=== PATIENT | male | born 1950 | race African-American/Black ===

== ENCOUNTER 2017-06-04 03:36 | Inpatient (IN) | payer MEDICARE, OTHER ==
[2017-06-04] MEDS ORDERED: ALBUTEROL SULFATE 2.5 MG/3 ML NEBU. (03:41)
[2017-06-04] MEDS ORDERED: IPRATRPIUM/ALBUTEROL 0.5/2.5MG 3 ML NEBU. (03:41)
[2017-06-04] MEDS ORDERED: methylPREDNISolone SOD SUCC PF 125 MG/2 ML VIAL. (03:45)
[2017-06-04] MEDS: methylPREDNISolone SOD SUCC PF 125 MG/2 ML VIAL. IV (03:49)
[2017-06-04] MEDS: IPRATRPIUM/ALBUTEROL 0.5/2.5MG 3 ML NEBU. NEB ×5 (03:59→22:55)
[2017-06-04] MEDS ORDERED: methylPREDNISolone SOD SUCC PF 125 MG/2 ML VIAL. IV (04:00)
[2017-06-04] MEDS: ALBUTEROL SULFATE 2.5 MG/3 ML NEBU. CONT NEB (04:06)
[2017-06-04 04:08] LABS: BASE EXCESS ABG -4 mmol/L (-3-3); BASO % 0 % (0-3); EOS % 0 % (0-3); HCO3 ABG 20 mmol/L (21-28); HEMATOCRIT 44.9 % (39.0-53.0); HEMOGLOBIN 14.8 g/dL (13.0-17.5); LYMPH # 0.4 x10^3/uL (1.0-4.8); LYMPH % 5 % (24-48); MEAN CORPUSCULAR HEMOGLOBIN 26 pg (25-35); MEAN CORPUSCULAR HGB CONC 33 g/dL (31-37); MEAN CORPUSCULAR VOLUME 78 fL (79-100); MONO # 0.8 x10^3/uL (0.0-1.1); MONO % 10 % (0-9); NEUT # 7.2 x10^3uL (1.8-7.7); NEUT % 85 % (31-73); PCO2 ABG 35 mmHg (35-46); PH ABG 7.37 (7.35-7.45); PLATELET COUNT 187 x10^3/uL (140-400); PO2 ABG 74 mmHg (65-108); RED BLOOD COUNT 5.75 x10^6/uL (4.30-5.70); RED CELL DISTRIBUTION WIDTH 14.6 % (11.5-14.5); SAT O2 ABG 94 % (92-99); WHITE BLOOD COUNT 8.4 x10^3/uL (4.0-11.0)
[2017-06-04 04:14] LABS: ADD MAN DIFF? YES
[2017-06-04] MEDS: IV NORMAL SALINE 1000ML BAG 1,000 ML IV ×5 (04:15→08:04)
[2017-06-04 04:19] LABS: ANION GAP 13 (6-14); BLOOD UREA NITROGEN 13 mg/dL (8-26); CALCIUM 8.9 mg/dL (8.5-10.1); CARBON DIOXIDE 22 mmol/L (21-32); CHLORIDE 97 mmol/L (98-107); CREATININE 1.2 mg/dL (0.7-1.3); GFR 72.6; GLUCOSE 141 mg/dL (70-99); POTASSIUM 4.6 mmol/L (3.5-5.1); SODIUM 132 mmol/L (136-145)
[2017-06-04 04:33] LABS: TROPONINI 0.298 ng/mL (0.000-0.055)
[2017-06-04] MEDS: FUROSEMIDE 20 MG/2 ML VIAL. IVP ×2 (04:59→12:27)
[2017-06-04 05:00] LABS: NT-PRO BNP 350 pg/mL (0-124)
[2017-06-04] MEDS ORDERED: HEPARIN for IV BOLUS 10,000 UNIT/10 ML VIAL. IV (05:15)
[2017-06-04] MEDS ORDERED: ONDANSETRON PF 4 MG/2 ML VIAL. IV ×2 (05:45→09:15)
[2017-06-04] MEDS: ANTI-COAG MONITOR BY PHARMACY. MC ×2 (05:58→08:01)
[2017-06-04] MEDS: HEPARIN for IV BOLUS 10,000 UNIT/10 ML VIAL. IV (06:13)
[2017-06-04] MEDS: HEPARIN 25,000UTS/500ML PREMIX 500 ML IV (06:14)
[2017-06-04 08:53] LABS: TROPONINI 0.339 ng/mL (0.000-0.055)
[2017-06-04] MEDS ORDERED: hydrALAZINE 20 MG/ML VIAL. IVP (09:15)
[2017-06-04] MEDS ORDERED: ALBUTEROL SULFATE 2.5 MG/3 ML NEBU. NEB ×2 (09:15→12:15)
[2017-06-04] MEDS ORDERED: MORPHINE SULFATE 2 MG/ML DISP.SYRIN. IV (09:15)
[2017-06-04] MEDS ORDERED: DOCUSATE SODIUM 100 MG CAPSULE. PO (09:15)
[2017-06-04 10:05] LABS: % BANDS 1 % (0-9); % EOS 1 % (0-5); % LYMPHS 4 % (24-48); % MONOS 3 % (0-10); % SEGS 91 % (35-66); PLT ESTIMATE ADEQUATE (ADEQUATE)
[2017-06-04] MEDS: LISINOPRIL 20 MG TABLET PO (11:38)
[2017-06-04] MEDS: DOXYCYCLINE HYCLATE 100 MG TABLET PO ×2 (11:38→21:28)
[2017-06-04] MEDS: LACTOBACILLUS RHAMNOSUS GG 1 CAPSULE. PO ×2 (11:38→21:28)
[2017-06-04] MEDS: ACETAMINOPHEN 325 MG TABLET. PO (11:39)
[2017-06-04 12:21] LABS: UNFRACTIONATED HEPARIN TESTING 0.13 IU/mL (0.30-0.70)
[2017-06-04] MEDS: ASPIRIN ENTERIC COATED 81 MG TABLET.DR. PO (12:26)
[2017-06-04] MEDS: MINERAL OIL/PETROLATUM TOPICAL CREAM 113GM JAR. TP (12:27)
[2017-06-04] MEDS: amLODIPine BESYLATE 10 MG TABLET PO (12:27)
[2017-06-04 12:38] LABS: TROPONINI 0.448 ng/mL (0.000-0.055)
[2017-06-04 12:41] LABS: CHOLESTEROL 145 mg/dL (0-200); HDLC 54 mg/dL (40-60); LDLC 85 mg/dL (0-100); NON-HDL CHOLESTEROL 91 mg/dL (0-129); TRIGLYCERIDES 28 mg/dL (0-150); VLDLC 6 mg/dL (0-40)
[2017-06-04 12:43] LABS: CREATINE KINASE 1483 U/L (39-308)
[2017-06-04 12:43] LABS: CHOLESTEROL/HDL RATIO 2.7
[2017-06-04 12:44] LABS: THYROID STIM HORMONE (TSH) 0.351 uIU/mL (0.358-3.74)
[2017-06-04 13:56] LABS: INFLUENZA A PATIENT NEGATIVE (NEGATIVE); INFLUENZA B PATIENT NEGATIVE (NEGATIVE); OBC FLU VALID
[2017-06-04] MEDS ORDERED: methylPREDNISolone SOD SUCC PF 40 MG/ML VIAL. IV (14:00)
[2017-06-04] MEDS: methylPREDNISolone SOD SUCC PF 40 MG/ML VIAL. IV ×2 (15:16→21:30)
[2017-06-04] MEDS ORDERED: INFLUENZA VAX SCREEN BY RX. MC (19:15)
[2017-06-04 20:12] LABS: MRSA BY PCR Negative (Negative)
[2017-06-04] MEDS: FAMOTIDINE 20 MG TABLET. PO (21:28)
[2017-06-04] MEDS: POLYVINYL ALCOHOL 1.4% OPHTH SOLUTION 15ML BOTTLE. OU (21:33)
[2017-06-05] MEDS: IPRATRPIUM/ALBUTEROL 0.5/2.5MG 3 ML NEBU. NEB ×6 (02:19→23:30)
[2017-06-05 04:36] LABS: ADD MAN DIFF? NO
[2017-06-05 04:52] LABS: BASO % 0 % (0-3); EOS % 0 % (0-3); HEMATOCRIT 42.7 % (39.0-53.0); LYMPH # 0.7 x10^3/uL (1.0-4.8); LYMPH % 5 % (24-48); MEAN CORPUSCULAR HEMOGLOBIN 26 pg (25-35); MEAN CORPUSCULAR HGB CONC 33 g/dL (31-37); MEAN CORPUSCULAR VOLUME 78 fL (79-100); MONO # 0.4 x10^3/uL (0.0-1.1); MONO % 3 % (0-9); NEUT # 11.7 x10^3uL (1.8-7.7); NEUT % 92 % (31-73); PLATELET COUNT 180 x10^3/uL (140-400); RED BLOOD COUNT 5.45 x10^6/uL (4.30-5.70); WHITE BLOOD COUNT 12.8 x10^3/uL (4.0-11.0)
[2017-06-05 05:29] LABS: ANION GAP 10 (6-14); CALCIUM 8.2 mg/dL (8.5-10.1); CARBON DIOXIDE 25 mmol/L (21-32); CHLORIDE 101 mmol/L (98-107); CREATININE 1.3 mg/dL (0.7-1.3); GFR 66.2; GLUCOSE 156 mg/dL (70-99); POTASSIUM 4.8 mmol/L (3.5-5.1); SODIUM 136 mmol/L (136-145)
[2017-06-05 05:30] LABS: BLOOD UREA NITROGEN 23 mg/dL (8-26)
[2017-06-05] MEDS: methylPREDNISolone SOD SUCC PF 40 MG/ML VIAL. IV ×3 (05:37→23:29)
[2017-06-05 08:26] LABS: CREATINE KINASE 3739 U/L (39-308)
[2017-06-05] MEDS: LISINOPRIL 20 MG TABLET PO (09:00)
[2017-06-05 09:26] LABS: ALBUMIN 3.5 g/dL (3.4-5.0); ALK PHOS 64 U/L (46-116); ALT (SGPT) 36 U/L (16-63); AST (SGOT) 60 U/L (15-37); DIRECT BILIRUBIN 0.1 mg/dL (0.0-0.2); TOTAL BILIRUBIN 0.3 mg/dL (0.2-1.0); TOTAL PROTEIN 7.6 g/dL (6.4-8.2)
[2017-06-05] MEDS: IV NORMAL SALINE 1000ML BAG 1,000 ML IV (09:27)
[2017-06-05] MEDS: ASPIRIN ENTERIC COATED 81 MG TABLET.DR. PO (10:37)
[2017-06-05] MEDS: DOXYCYCLINE HYCLATE 100 MG TABLET PO ×2 (10:37→21:14)
[2017-06-05] MEDS: LACTOBACILLUS RHAMNOSUS GG 1 CAPSULE. PO ×2 (10:38→21:15)
[2017-06-05] MEDS: amLODIPine BESYLATE 10 MG TABLET PO (10:39)
[2017-06-05] MEDS: ANTI-COAG MONITOR BY PHARMACY. MC (15:00)
[2017-06-05 15:23] LABS: TROPONINI 0.603 ng/mL (0.000-0.055)
[2017-06-05 20:57] LABS: POC GLUCOSE 145 mg/dL (70-99)
[2017-06-05] MEDS: FAMOTIDINE 20 MG TABLET. PO (21:15)
[2017-06-05] MEDS: FLU VACC QS2017-18 (36MOS+)/PF 0.5 ML SYRINGE. VAX IM (21:18)
[2017-06-06] MEDS: IPRATRPIUM/ALBUTEROL 0.5/2.5MG 3 ML NEBU. NEB ×6 (04:08→23:27)
[2017-06-06 05:14] LABS: ADD MAN DIFF? NO
[2017-06-06 05:29] LABS: BASO % 0 % (0-3); EOS % 0 % (0-3); HEMATOCRIT 44.5 % (39.0-53.0); HEMOGLOBIN 14.3 g/dL (13.0-17.5); LYMPH # 0.8 x10^3/uL (1.0-4.8); LYMPH % 4 % (24-48); MEAN CORPUSCULAR HEMOGLOBIN 25 pg (25-35); MEAN CORPUSCULAR HGB CONC 32 g/dL (31-37); MEAN CORPUSCULAR VOLUME 78 fL (79-100); MONO # 0.6 x10^3/uL (0.0-1.1); MONO % 3 % (0-9); NEUT # 19.1 x10^3uL (1.8-7.7); NEUT % 93 % (31-73); PLATELET COUNT 189 x10^3/uL (140-400); RED CELL DISTRIBUTION WIDTH 15.3 % (11.5-14.5); WHITE BLOOD COUNT 20.5 x10^3/uL (4.0-11.0)
[2017-06-06 05:47] LABS: ALBUMIN 3.4 g/dL (3.4-5.0); ALBUMIN/GLOBULIN RATIO 0.8 (1.0-1.7); ALK PHOS 55 U/L (46-116); ALT (SGPT) 51 U/L (16-63); ANION GAP 8 (6-14); AST (SGOT) 98 U/L (15-37); BLOOD UREA NITROGEN 25 mg/dL (8-26); BUN/CREATININE RATIO 19 (6-20); CALCIUM 8.1 mg/dL (8.5-10.1); CARBON DIOXIDE 28 mmol/L (21-32); CHLORIDE 104 mmol/L (98-107); CREATININE 1.3 mg/dL (0.7-1.3); GFR 66.2; GLUCOSE 130 mg/dL (70-99); POTASSIUM 4.9 mmol/L (3.5-5.1); SODIUM 140 mmol/L (136-145); TOTAL BILIRUBIN 0.3 mg/dL (0.2-1.0); TOTAL PROTEIN 7.6 g/dL (6.4-8.2)
[2017-06-06 05:48] LABS: CREATINE KINASE 4485 U/L (39-308)
[2017-06-06] MEDS: methylPREDNISolone SOD SUCC PF 40 MG/ML VIAL. IV ×3 (07:50→21:37)
[2017-06-06 08:03] LABS: POC GLUCOSE 138 mg/dL (70-99)
[2017-06-06] MEDS: ANTI-COAG MONITOR BY PHARMACY. MC (09:42)
[2017-06-06] MEDS: REGADENOSON 0.4 MG/5 ML DISP.SYRIN. IV (10:44)
[2017-06-06] MEDS ORDERED: IV NORMAL SALINE 500ML BAG 500 ML IV (11:15)
[2017-06-06 11:52] LABS: POC GLUCOSE 142 mg/dL (70-99)
[2017-06-06] MEDS: LISINOPRIL 20 MG TABLET PO (12:33)
[2017-06-06] MEDS: ASPIRIN ENTERIC COATED 81 MG TABLET.DR. PO (12:33)
[2017-06-06] MEDS: amLODIPine BESYLATE 10 MG TABLET PO (12:35)
[2017-06-06] MEDS: DOXYCYCLINE HYCLATE 100 MG TABLET PO ×2 (12:36→21:35)
[2017-06-06] MEDS: LACTOBACILLUS RHAMNOSUS GG 1 CAPSULE. PO ×2 (12:36→21:35)
[2017-06-06] MEDS: IV NORMAL SALINE 1000ML BAG 1,000 ML IV (12:40)
[2017-06-06] MEDS: ASPIRIN CHEWABLE 81 MG TABLET. PO (15:22)
[2017-06-06 17:41] LABS: POC GLUCOSE 215 mg/dL (70-99)
[2017-06-06 18:54] LABS: VITAMIN-B12 754 pg/mL (247-911)
[2017-06-06 21:15] LABS: POC GLUCOSE 170 mg/dL (70-99)
[2017-06-06] MEDS: FAMOTIDINE 20 MG TABLET. PO (21:35)
[2017-06-07] MEDS: IPRATRPIUM/ALBUTEROL 0.5/2.5MG 3 ML NEBU. NEB ×5 (03:03→19:23)
[2017-06-07] MEDS: IV NORMAL SALINE 1000ML BAG 1,000 ML IV ×2 (03:27→18:13)
[2017-06-07 05:54] LABS: PHOSPHORUS 3.3 mg/dL (2.6-4.7)
[2017-06-07 05:56] LABS: CREATINE KINASE 1687 U/L (39-308)
[2017-06-07] MEDS: methylPREDNISolone SOD SUCC PF 40 MG/ML VIAL. IV (06:10)
[2017-06-07 06:11] LABS: BILIRUBIN,URINE NEGATIVE (NEG); CLARITY,URINE CLEAR; COLOR,URINE YELLOW; GLUCOSE,URINE NEGATIVE (NEG); NITRITE,URINE NEGATIVE (NEG); PROTEIN,URINE NEGATIVE (NEG-TRACE)
[2017-06-07 06:41] LABS: BACTERIA,URINE FEW /HPF (0-FEW); RBC,URINE OCC /HPF (0-2); SQUAMOUS EPITHELIAL CELL,UR OCC /LPF
[2017-06-07 08:13] LABS: POC GLUCOSE 146 mg/dL (70-99)
[2017-06-07] MEDS: ASPIRIN ENTERIC COATED 81 MG TABLET.DR. PO (09:29)
[2017-06-07] MEDS: LACTOBACILLUS RHAMNOSUS GG 1 CAPSULE. PO ×2 (09:29→20:52)
[2017-06-07] MEDS: DOXYCYCLINE HYCLATE 100 MG TABLET PO ×2 (09:29→20:52)
[2017-06-07] MEDS: amLODIPine BESYLATE 10 MG TABLET PO (09:30)
[2017-06-07] MEDS: LISINOPRIL 20 MG TABLET PO (09:30)
[2017-06-07] MEDS: ENOXAPARIN 40 MG/0.4 ML SYRINGE. SQ (09:31)
[2017-06-07 11:48] LABS: POC GLUCOSE 187 mg/dL (70-99)
[2017-06-07 14:36] LABS: FREE T4 0.93 ng/dL (0.76-1.46)
[2017-06-07 17:10] LABS: POC GLUCOSE 174 mg/dL (70-99)
[2017-06-07] MEDS: predniSONE 20 MG TABLET PO (18:13)
[2017-06-07] MEDS: THIAMINE 100 MG TABLET. PO (18:13)
[2017-06-07] MEDS: traMADol 50 MG TABLET PO (20:53)
[2017-06-07] MEDS: FAMOTIDINE 20 MG TABLET. PO (20:53)
[2017-06-07 21:08] LABS: POC GLUCOSE 136 mg/dL (70-99)
[2017-06-08] MEDS: IPRATRPIUM/ALBUTEROL 0.5/2.5MG 3 ML NEBU. NEB ×5 (00:41→15:56)
[2017-06-08 05:38] LABS: PHOSPHORUS 2.9 mg/dL (2.6-4.7)
[2017-06-08 05:38] LABS: CREATINE KINASE 848 U/L (39-308)
[2017-06-08 07:53] LABS: POC GLUCOSE 97 mg/dL (70-99)
[2017-06-08] MEDS: IV NORMAL SALINE 1000ML BAG 1,000 ML IV ×2 (08:10→16:35)
[2017-06-08] MEDS: predniSONE 20 MG TABLET PO (09:11)
[2017-06-08] MEDS: THIAMINE 100 MG TABLET. PO (09:11)
[2017-06-08] MEDS: ASPIRIN ENTERIC COATED 81 MG TABLET.DR. PO (09:11)
[2017-06-08] MEDS: LACTOBACILLUS RHAMNOSUS GG 1 CAPSULE. PO (09:11)
[2017-06-08] MEDS: amLODIPine BESYLATE 10 MG TABLET PO (09:11)
[2017-06-08] MEDS: LISINOPRIL 20 MG TABLET PO (09:12)
[2017-06-08] MEDS: ENOXAPARIN 40 MG/0.4 ML SYRINGE. SQ (09:12)
[2017-06-08] MEDS: DOXYCYCLINE HYCLATE 100 MG TABLET PO (09:12)
[2017-06-08 11:03] LABS: POC GLUCOSE 117 mg/dL (70-99)
[2017-06-08] MEDS ORDERED: MORPHINE SULFATE 4 MG/ML DISP.SYRIN. IV (11:18)
[2017-06-08 17:14] LABS: POC GLUCOSE 200 mg/dL (70-99)
[2017-06-09] MEDS ORDERED: predniSONE 10 MG TABLET PO (09:00)
[2017-06-11] MEDS ORDERED: predniSONE 20 MG TABLET PO (09:00)
[2017-06-13] MEDS ORDERED: predniSONE 10 MG TABLET PO (09:00)
[2017-06-15] MEDS ORDERED: predniSONE 5 MG TABLET PO (09:00)
== END 2017-06-08 18:48 | disposition home or self-care (01) | DRG 871 ==
LOC: ER 03:36 → 1 WEST ICU 05:48 → 2 NORTH 19:11
PROC: 5A09357 Assistance with Respiratory Ventilation, Less than 24 Consecutive Hours, Continuous Positive Airway Pressure (ICD-10-PCS; principal; 2017-06-08)
PROC: 5A09357 Assistance with Respiratory Ventilation, Less than 24 Consecutive Hours, Continuous Positive Airway Pressure (ICD-10-PCS; 2017-06-08)
DX: A41.89 Other specified sepsis (principal); I50.31 Acute diastolic (congestive) heart failure; J96.01 Acute respiratory failure with hypoxia; I21.4 Non-ST elevation (NSTEMI) myocardial infarction; J12.9 Viral pneumonia, unspecified; E87.1 Hypo-osmolality and hyponatremia; J44.0 Chronic obstructive pulmonary disease with (acute) lower respiratory infection; J44.1 Chronic obstructive pulmonary disease with (acute) exacerbation; M62.82 Rhabdomyolysis; E11.36 Type 2 diabetes mellitus with diabetic cataract; E11.65 Type 2 diabetes mellitus with hyperglycemia; E66.9 Obesity, unspecified; Z68.33 Body mass index [BMI] 33.0-33.9, adult; F17.210 Nicotine dependence, cigarettes, uncomplicated; F20.9 Schizophrenia, unspecified; H40.9 Unspecified glaucoma; I11.0 Hypertensive heart disease with heart failure; I16.0 Hypertensive urgency; Z82.49 Family history of ischemic heart disease and other diseases of the circulatory system; F32.9 Major depressive disorder, single episode, unspecified; M19.90 Unspecified osteoarthritis, unspecified site; Z98.49 Cataract extraction status, unspecified eye; R47.1 Dysarthria and anarthria
CPT/HCPCS: 36415; 36600; 70450; 70551; 71045; 78452; 80048; 80053; 80061; 80076; 81001; 82550; 82607; 82805; 82962; 83880; 84100; 84439; 84443; 84484; 85007; 85025; 85520; 87641; 87804; 87804-59; 90686; 93005; 93017; 93306; 93880; 94618; 94640; 94644; 94660; 94760; 96374; 96375; 96376; 97110-GP; 97116-GP; 97162-GP; 97165-GO; 99291; 99291-25; 99406; A9500; J1644; J1650; J2785; J2920; J2930; J7030; J7512; J7613; J7620

== ENCOUNTER 2021-03-13 11:53 | Observation (INO) | payer MEDICARE, MEDICAID ==
[~2021-03-13] VITALS: Ht 177.8 cm; Wt 82.0 kg
[~2021-03-13 11:53] MED LIST: ACET500T33 PO; AMLO-187 PO; DOXY100C3 PO; HALO100A2 IM; LISI-130 PO; PRED20TA PO; THIA100T43 PO
[2021-03-13 12:54] LABS: BASO % 0 % (0-3); EOS % 0 % (0-3); HEMATOCRIT 35.4 % (39.0-53.0); HEMOGLOBIN 11.4 g/dL (13.0-17.5); LYMPH # 1.2 x10^3/uL (1.0-4.8); LYMPH % 12 % (24-48); MEAN CORPUSCULAR HEMOGLOBIN 24 pg (25-35); MEAN CORPUSCULAR HGB CONC 32 g/dL (31-37); MEAN CORPUSCULAR VOLUME 76 fL (79-100); MONO # 0.5 x10^3/uL (0.0-1.1); MONO % 5 % (0-9); NEUT # 8.1 x10^3/uL (1.8-7.7); NEUT % 82 % (31-73); PLATELET COUNT 254 x10^3/uL (140-400); RED BLOOD COUNT 4.67 x10^6/uL (4.30-5.70); RED CELL DISTRIBUTION WIDTH 15.5 % (11.5-14.5); WHITE BLOOD COUNT 9.9 x10^3/uL (4.0-11.0)
[2021-03-13 13:02] LABS: CALCIUM 8.4 mg/dL (8.5-10.1); CREATININE 1.1 mg/dL (0.7-1.3); GFR 79.4; POTASSIUM 4.1 mmol/L (3.5-5.1)
[2021-03-13 13:08] LABS: ALBUMIN 3.1 g/dL (3.4-5.0); ALBUMIN/GLOBULIN RATIO 0.9 (1.0-1.7); MAGNESIUM 1.9 mg/dL (1.8-2.4); TOTAL PROTEIN 6.6 g/dL (6.4-8.2)
[2021-03-13 13:47] LABS: PROTHROMBIN TIME PATIENT 15.1 SEC (11.7-14.0)
--- NOTE | 2021-03-13 14:05 | RAD ---
EXAM: 1. CT HEAD WITHOUT CONTRAST. 2. CT FACIAL BONES WITHOUT CONTRAST. 3. CT CERVICAL SPINE WITHOUT CONTRAST. HISTORY: Altered mental status, fall. TECHNIQUE: Computed tomography of the head, facial bones and cervical spine was performed without int ravenous contrast. One or more of the following individualized dose reduction techniques were utilize d for this examination: 1. Automated exposure control. 2. Adjustment of the mA and/or kV according to patient size. 3. Use of iterative reconstruction technique. COMPARISON: 06/06/2017. FINDINGS: There is no intracranial hemorrhage. Snider-white differentiation is preserved. The ventricl es are normal in size and position. The temporal bones are unremarkable. The calvarium reveals no suspicious lesions. No facial fractures are identified. There is mucosal thickening within the paranasal sinuses. There a re changes of bilateral cataract surgery. There is skin thickening throughout the face. This is most severe along the left eyelids. Alignment is maintained. There is mild osteoarthritis at C1/2. No fractures are identified. Degenerat marybeth disc disease is moderate to severe at C3-4 and from C5 through C7. There is no prevertebral soft tissue swelling. At C2-3, there is a moderate posterior disc-osteophyte complex. Uncovertebral osteoarthritis is moder ate on the left and mild right. Left facet osteoarthritis is moderate to severe. Neural foraminal gayle nosis is mild bilaterally. Central canal stenosis appears mild. At C3-4, there is a moderate posterior disc bulge. Central canal stenosis appears moderate. Uncoverte bral osteoarthritis is moderate to severe bilaterally. Neural foraminal stenosis is moderate to sever e bilaterally. At C4-5, there is a small posterior disc bulge. Central canal stenosis appears mild. Uncovertebral os teoarthritis is mild bilaterally. Left facet osteoarthritis is moderate to severe. Neural foraminal s tenosis is moderate to severe on the left and mild right. At C5-6, there is a moderate posterior disc-osteophyte complex. Central canal stenosis appears severe . Uncovertebral osteoarthritis is moderate on the left greater than right. Neural foraminal stenosis is moderate on the left greater than right. Central canal stenosis is moderate to severe. At C6-7, there is a moderate posterior disc-osteophyte complex. Central canal stenosis appears modera te. Uncovertebral osteoarthritis is moderate to severe on the left and moderate on the right. Neural foraminal stenosis is moderate to severe on the left greater than right. IMPRESSION: 1. No acute intracranial findings. 2. Skin thickening throughout the face. Correlate for swelling or inflammation. 3. No facial fractures. 4. No cervical fracture or acute malalignment. 5. Moderate to severe degenerative changes result in multilevel moderate to severe central canal sten osis and neural foraminal stenosis as above. MRI could further assess stenosis if there is persistent concern. Electronically signed by: Kristian Cruz MD (03/13/2021 2:02 PM) [facility]
--- NOTE | 2021-03-13 14:40 | PHYS DOC ---
Past Medical History Past Medical History: Depression, Schizophrenia, Other Additional Past Medical Histor: "groin injury," paranoid schizophrenia, blind (BENNY CORCORAN) Past Surgical History: No Surgical History Additional Past Surgical Histo: L eye, CATARACTS (BENNY CORCORAN) Smoking Status: Current Some Day Smoker Alcohol Use: Occasionally Drug Use: None (BENNY CORCORAN) General Adult EDM: Chief Complaint: MECHANICAL FALL HPI: HPI: Patient is a 71 year old homeless male who presents via EMS with facial laceration and contusion. Per EMS, a passerby called 911 when they found the patient on the ground and bloody while they were walking their dog. Patient is a poor historian, but states that he fell last night. He reports to nursing staff that his speech is slurred at baseline. He reports daily cigarette smoking as well as alcohol use. He denies drug use. Patient denies having significant past medical history. (BENNY CORCORAN) Review of Systems: Review of Systems: Unable to obtain secondary to patient's mental status. (BENNY CORCORAN) Heart Score: C/O Chest Pain: No (BENNY CORCORAN) Allergies: Allergies: Allergies Coded Allergies Type Severity Reaction Last Updated Verified No Known Drug Allergies 10/23/14 No (BENNY CORCORAN) Physical Exam: PE: Constitutional: Well developed, well nourished, no acute distress, somnolent/asleep but easily arousable. HENT: Normocephalic, approximately 2 cm laceration noted above left eyebrow with periorbital swelling and skin tear below, bilateral external ears normal, oropharynx moist, poor dentition, external nose without obvious deformity. Eyes: No discharge, periorbital swelling on the left side without subconjunctival hemorrhage. Neck: Normal range of motion, no tenderness, supple, no stridor. Cardiovascular: Heart rate regular rhythm, no murmur. Lungs & Thorax: Bilateral breath sounds clear to auscultation. Abdomen: Bowel sounds normal, soft, no tenderness, no masses, no pulsatile masses. Skin: Significant dryness and scaling appreciated, no rash. Extremities: No tenderness, no cyanosis, no clubbing, ROM intact, no edema. Neurologic: Patient is altered, alert to person only, slurred speech, no focal deficits noted. (BENNY CORCORAN) Current Patient Data: Labs: Laboratory Tests Test 03/13/21 12:06 03/13/21 12:44 03/13/21 13:50 Glucose (Fingerstick) 77 mg/dL (70-99) White Blood Count 9.9 x10^3/uL (4.0-11.0) Red Blood Count 4.67 x10^6/uL (4.30-5.70) Hemoglobin 11.4 g/dL (13.0-17.5) L Hematocrit 35.4 % (39.0-53.0) L Mean Corpuscular Volume 76 fL (79-100) L Mean Corpuscular Hemoglobin 24 pg (25-35) L Mean Corpuscular Hemoglobin Concent 32 g/dL (31-37) Red Cell Distribution Width 15.5 % (11.5-14.5) H Platelet Count 254 x10^3/uL (140-400) Neutrophils (%) (Auto) 82 % (31-73) H Lymphocytes (%) (Auto) 12 % (24-48) L Monocytes (%) (Auto) 5 % (0-9) Eosinophils (%) (Auto) 0 % (0-3) Basophils (%) (Auto) 0 % (0-3) Neutrophils # (Auto) 8.1 x10^3/uL (1.8-7.7) H Lymphocytes # (Auto) 1.2 x10^3/uL (1.0-4.8) Monocytes # (Auto) 0.5 x10^3/uL (0.0-1.1) Eosinophils # (Auto) 0.0 x10^3/uL (0.0-0.7) Basophils # (Auto) 0.0 x10^3/uL (0.0-0.2) Prothrombin Time 15.1 SEC (11.7-14.0) H Prothrombin Time INR 1.2 (0.8-1.1) H Activated Partial Thromboplast Time 28 SEC (24-38) Sodium Level 142 mmol/L (136-145) Potassium Level 4.1 mmol/L (3.5-5.1) Chloride Level 105 mmol/L (98-107) Carbon Dioxide Level 26 mmol/L (21-32) Anion Gap 11 (6-14) Blood Urea Nitrogen 21 mg/dL (8-26) Creatinine 1.1 mg/dL (0.7-1.3) Estimated GFR (Cockcroft-Gault) 79.4 BUN/Creatinine Ratio 19 (6-20) Glucose Level 69 mg/dL (70-99) L Calcium Level 8.4 mg/dL (8.5-10.1) L Magnesium Level 1.9 mg/dL (1.8-2.4) Total Bilirubin 1.0 mg/dL (0.2-1.0) Aspartate Amino Transferase (AST) 79 U/L (15-37) H Alanine Aminotransferase (ALT) 46 U/L (16-63) Alkaline Phosphatase 95 U/L (46-116) Total Protein 6.6 g/dL (6.4-8.2) Albumin 3.1 g/dL (3.4-5.0) L Albumin/Globulin Ratio 0.9 (1.0-1.7) L Ammonia 14 mcmol/L (11-34) Laboratory Tests 03/13/21 12:44 Laboratory Tests 03/13/21 12:44 Vital Signs: Vital Signs Date Time Temp Pulse Resp B/P (MAP) Pulse Ox O2 Delivery O2 Flow Rate FiO2 03/13/21 12:19 98.5 66 18 117/61 (79) 99 Room Air 98.5 (BENNY CORCORAN) EKG: EKG: EKG Interpreted by Dr. Dr. Rutherford at 1215: Regular rate and rhythm 75 bpm with no ectopic beats. No concerning ST-T wave changes. [place] interval 172 ms, QT 402 ms, QTC of 452 ms. (BENNY CORCORAN) Radiology/Procedures: Radiology/Procedures: PROCEDURE: CT CERVICAL SPINE WO CONTRAST EXAM: 1. CT HEAD WITHOUT CONTRAST. 2. CT FACIAL BONES WITHOUT CONTRAST. 3. CT CERVICAL SPINE WITHOUT CONTRAST. HISTORY: Altered mental status, fall. TECHNIQUE: Computed tomography of the head, facial bones and cervical spine was performed without intravenous contrast. One or more of the following individualized dose reduction techniques were utilized for this examination: 1. Automated exposure control. 2. Adjustment of the mA and/or kV according to patient size. 3. Use of iterative reconstruction technique. COMPARISON: 06/06/2017. FINDINGS: There is no intracranial hemorrhage. Snider-white differentiation is preserved. The ventricles are normal in size and position. The temporal bones are unremarkable. The calvarium reveals no suspicious lesions. No facial fractures are identified. There is mucosal thickening within the paranasal sinuses. There are changes of bilateral cataract surgery. There is skin thickening throughout the face. This is most severe along the left eyelids. Alignment is maintained. There is mild osteoarthritis at C1/2. No fractures are identified. Degenerative disc disease is moderate to severe at C3-4 and from C5 through C7. There is no prevertebral soft tissue swelling. At C2-3, there is a moderate posterior disc-osteophyte complex. Uncovertebral osteoarthritis is moderate on the left and mild right. Left facet osteoarthritis is moderate to severe. Neural foraminal stenosis is mild bilaterally. Central canal stenosis appears mild. At C3-4, there is a moderate posterior disc bulge. Central canal stenosis appears moderate. Uncovertebral osteoarthritis is moderate to severe bilaterally. Neural foraminal stenosis is moderate to severe bilaterally. At C4-5, there is a small posterior disc bulge. Central canal stenosis appears mild. Uncovertebral osteoarthritis is mild bilaterally. Left facet osteoarthritis is moderate to severe. Neural foraminal stenosis is moderate to severe on the left and mild right. At C5-6, there is a moderate posterior disc-osteophyte complex. Central canal stenosis appears severe. Uncovertebral osteoarthritis is moderate on the left greater than right. Neural foraminal stenosis is moderate on the left greater than right. Central canal stenosis is moderate to severe. At C6-7, there is a moderate posterior disc-osteophyte complex. Central canal stenosis appears moderate. Uncovertebral osteoarthritis is moderate to severe on the left and moderate on the right. Neural foraminal stenosis is moderate to severe on the left greater than right. IMPRESSION: 1. No acute intracranial findings. 2. Skin thickening throughout the face. Correlate for swelling or inflammation. 3. No facial fractures. 4. No cervical fracture or acute malalignment. 5. Moderate to severe degenerative changes result in multilevel moderate to severe central canal stenosis and neural foraminal stenosis as above. MRI could further assess stenosis if there is persistent concern. Electronically signed by: Kristian Cruz MD (03/13/2021 2:02 PM) [facility] (BENNY CORCORAN) Course & Med Decision Making: Course & Med Decision Making Pertinent Labs and Imaging studies reviewed. (See chart for details) It is unclear whether the patient's current mental status is consistent with his baseline or not. Work-up today will include septic work-up as well as head, face and neck CT without contrast. Urinalysis shows sign of infection. Patient is unable to reliably obtain and take prescriptions, so will be admitted for UTI treatment to hospitalist service. Workup today otherwise unremarkable. (BENNY CORCORAN) Dragon Disclaimer: Dragon Disclaimer: This electronic medical record was generated, in whole or in part, using a voice recognition dictation system. (BENNY CORCORAN) Departure Departure Impression: Primary Impression: Urinary tract infection in male Disposition: ADMITTED INPATIENT Admitting Physician: MAC Nicholson) (BENNY CORCORAN) Condition: GUARDED Referrals: NO PCP (PCP) Attending Signature Attending Signature I have reviewed the PA/WAREHOUSE DELIVERY MANAGER's note and plan of care. I was available for consultation as needed during the patient's visit in the emergency department. I agree with the clinical impression, plan, and disposition. (BELEN RUTHERFORD DO) BENNY CORCORAN Mar 13, 2021 14:40 BELEN RUTHERFORD DO Mar 26, 2021 11:40
[2021-03-13 14:55] LABS: BILIRUBIN,URINE SMALL (NEG); CLARITY,URINE CLEAR; COLOR,URINE AMBER; NITRITE,URINE NEGATIVE (NEG); PH,URINE 5.5 (<5.0-8.0); PROTEIN,URINE 30 mg/dL (NEG-TRACE)
[2021-03-13 14:57] LABS: BACTERIA,URINE 0 /HPF (0-FEW); RBC,URINE 0 /HPF (0-2)
[2021-03-13 15:03] LABS: AMPHETAMINE/METHAMPHETAMINE NEG (NEG); BARBITURATES NEG (NEG); BENZODIAZEPINES NEG (NEG); CANNABINOIDS NEG (NEG); COCAINE NEG (NEG); METHADONE NEG (NEG); OPIATES NEG (NEG); PHENCYCLIDINE NEG (NEG)
[2021-03-13] MEDS ORDERED: IV NORMAL SALINE 1000ML BAG 1,000 ML IV ONE (16:00)
[2021-03-13] MEDS ORDERED: cefTRIAXone IV Push 1 GM VIAL. IVP ONE (16:00)
--- NOTE | 2021-03-13 16:04 | EKG ---
[facility] [address] [place] [address] Test Date: 2021-03-13 Test Time: 12:05:16 Pat Name: JESSICA VELÁSQUEZ Department: Room: Gender: M Video Production Assistant: : 1950 Requested By: BENNY CORCORAN Order Number: [id number] Reading MD: Basilio Severino Measurements Intervals [place] Rate: 75 P: 67 MT: 172 QRS: 15 QRSD: 74 T: 59 QT: 402 QTc: 452 Interpretive Statements SINUS RHYTHM ATRIAL PREMATURE COMPLEX(ES) QRS(T) CONTOUR ABNORMALITY CONSISTENT WITH POSSIBLE OLD SEPTAL INFARCT Electronically Signed On 03-14-2021 9:39:46 PRODUCT MANUFACTURING PROFESSIONAL by Basilio Severino
--- NOTE | 2021-03-13 16:41 | PDOC1 ---
History and Physical Date of Service: DOS: DATE: 03/13/21 TIME: 16:33 Chief Complaint: Chief Complain: AMS? History of Present Illness: HPI: Patient fell asleep during interview multiple times thus HPI from ED Patient is a 71 year old homeless male who presents via EMS with facial laceration and contusion. Per EMS, a passerby called 911 when they found the patient on the ground and bloody while they were walking their dog. Patient is a poor historian, but states that he fell last night. He reports to nursing staff that his speech is slurred at baseline. He reports daily cigarette smoking as well as alcohol use. He denies drug use. Patient denies having significant past medical history. Past Medical/Surgical History: PMH/PSH: Past Medical History: Depression, Schizophrenia, Other Additional Past Medical Histor: "groin injury," paranoid schizophrenia, blind Allergies: Allergies: Coded Allergies: No Known Drug Allergies (Unverified , 10/23/14) Family History: Family History: Could not obtain from patient Social History: Social History: Denies any substance abuse to me; upon chart review appears alcoholic, occ tobacco use, denies drug use Current Medications: Current Medications Current Medications Ceftriaxone Sodium (Rocephin) 1 gm 1X ONCE IVP Last administered on 03/13/21at 16:20; Start 03/13/21 at 16:00; Stop 03/13/21 at 16:01; Status DC Sodium Chloride 1,000 ml @ 1,000 mls/hr 1X ONCE IV Last administered on 03/13/21at 16:20; Start 03/13/21 at 16:00; Stop 03/13/21 at 16:59 Amlodipine Besylate (Norvasc) 10 mg DAILY PO ; Start 03/14/21 at 09:00 Lisinopril (Prinivil) 40 mg DAILY PO ; Start 03/14/21 at 09:00 Multivitamins 10 ml/Thiamine HCl 100 mg/Folic Acid 1 mg/Sodium Chloride 1,011.2 ml @ 100 mls/ hr DAILY IV ; Start 03/13/21 at 17:00; Stop 03/17/21 at 19:07 Multivitamins (Thera M Plus) 1 tab DAILY PO ; Start 03/18/21 at 09:00; Status UNV Folic Acid (Folic Acid) 1 mg DAILY PO ; Start 03/18/21 at 09:00; Status UNV Thiamine Mononitrate (Vitamin B-1) 100 mg DAILY PO ; Start 03/18/21 at 09:00; Status UNV Lorazepam (Ativan) 4 mg PRN Q1HR PRN PO For CIWA 8-14; Start 03/13/21 at 16:30; Status UNV Lorazepam (Ativan) 8 mg PRN Q1HR PRN PO For CIWA 15 or greater; Start 03/13/21 at 16:30; Status UNV Active Scripts Active Reported Prednisone 20 Mg Tablet 1 Tab PO DAILY Doxycycline Hyclate 100 Mg Capsule 1 Cap PO BID 2 Days B-1 (Thiamine HCl) 100 Mg Tablet 100 Mg PO Lisinopril 40 Mg Tablet 1 Tab PO DAILY Amlodipine Besylate 10 Mg Tablet 10 Mg PO DAILY Haldol Decanoate 100 (Haloperidol Decanoate) 100 Mg/1 Ml Ampul 1 Ml IM QMONTH Tylenol Extra Strength (Acetaminophen) 500 Mg Tablet 500-1,000 Mg PO PRN ROS: Review of Systems Review of System REVIEW OF SYSTEMS: GENERAL: Denies weakness SKIN: No bruising, hair changes or rashes. EYES: No blurred, double or loss of vision. NOSE AND THROAT: No history of nosebleeds, hoarseness or sore throat. HEART: No history of palpitations, chest pain or shortness of breath on exertion. LUNGS: Denies cough, hemoptysis, wheezing or shortness of breath. GASTROINTESTINAL: Denies changes in appetite, nausea, vomiting, diarrhea or constipation. GENITOURINARY: No history of frequency, urgency, hesitancy or nocturia. NEUROLOGIC: Denies history of numbness, tingling, or tremor. PSYCHIATRIC: No history of panic, anxiety or depression. ENDOCRINE: No history of heat or cold intolerance, polyuria or polydipsia. EXTREMITIES: Denies joint pain, pain on walking or stiffness. Physical Exam: Vital Signs: Vital Signs Date Time Temp Pulse Resp B/P (MAP) Pulse Ox O2 Delivery O2 Flow Rate FiO2 03/13/21 14:46 85 125/66 (85) 99 Room Air 03/13/21 12:19 98.5 18 98.5 Physcial Exam: GEN: No apparent distress. Alert and oriented x0 HEENT: Normal cephalic, atraumatic, external auditory canals are patent EYES: Extraocular muscles are intact, pupil are equally round and reactive to light and accommodation MUSCULOSKELETAL: malnourished; limited ROM ENDOCRINE: No thyromegaly was palpated LYMPHATICS: No cervical chain or axillary nodes were noted HEMATOPOIETIC: No bruising NECK: Supple, no JVD, no thyromegaly was noted LUNGS: coarse breath sounds throughout HEART: RRR, S1, S2 present. Peripheral pulses intact, no obvious murmurs no joycelyn ABDOMEN: Soft, nontender. Positive bowel sounds, no organomegaly, normal bowel sounds EXTREMITIES: Without clubbing, cyanosis, or edema. Pedal pulses intact.n NEUROLOGIC: hard to interpret as patient consistently falling asleep during interview PSYCHIATRIC: Normal affect, normal mood. Stable SKIN: No ulcerations or rashes, good skin turgor, no jaundice VASCULAR: Good capillary refill, neurovascular bundle appears to be intact Labs: Labs: Laboratory Tests Test 03/13/21 12:06 03/13/21 12:44 03/13/21 13:50 03/13/21 14:40 Glucose (Fingerstick) 77 mg/dL (70-99) White Blood Count 9.9 x10^3/uL (4.0-11.0) Red Blood Count 4.67 x10^6/uL (4.30-5.70) Hemoglobin 11.4 g/dL (13.0-17.5) Hematocrit 35.4 % (39.0-53.0) Mean Corpuscular Volume 76 fL (79-100) Mean Corpuscular Hemoglobin 24 pg (25-35) Mean Corpuscular Hemoglobin Concent 32 g/dL (31-37) Red Cell Distribution Width 15.5 % (11.5-14.5) Platelet Count 254 x10^3/uL (140-400) Neutrophils (%) (Auto) 82 % (31-73) Lymphocytes (%) (Auto) 12 % (24-48) Monocytes (%) (Auto) 5 % (0-9) Eosinophils (%) (Auto) 0 % (0-3) Basophils (%) (Auto) 0 % (0-3) Neutrophils # (Auto) 8.1 x10^3/uL (1.8-7.7) Lymphocytes # (Auto) 1.2 x10^3/uL (1.0-4.8) Monocytes # (Auto) 0.5 x10^3/uL (0.0-1.1) Eosinophils # (Auto) 0.0 x10^3/uL (0.0-0.7) Basophils # (Auto) 0.0 x10^3/uL (0.0-0.2) Prothrombin Time 15.1 SEC (11.7-14.0) Prothromb Time International Ratio 1.2 (0.8-1.1) Activated Partial Thromboplast Time 28 SEC (24-38) Sodium Level 142 mmol/L (136-145) Potassium Level 4.1 mmol/L (3.5-5.1) Chloride Level 105 mmol/L (98-107) Carbon Dioxide Level 26 mmol/L (21-32) Anion Gap 11 (6-14) Blood Urea Nitrogen 21 mg/dL (8-26) Creatinine 1.1 mg/dL (0.7-1.3) Estimated GFR (Cockcroft-Gault) 79.4 BUN/Creatinine Ratio 19 (6-20) Glucose Level 69 mg/dL (70-99) Calcium Level 8.4 mg/dL (8.5-10.1) Magnesium Level 1.9 mg/dL (1.8-2.4) Total Bilirubin 1.0 mg/dL (0.2-1.0) Aspartate Amino Transf (AST/SGOT) 79 U/L (15-37) Alanine Aminotransferase (ALT/SGPT) 46 U/L (16-63) Alkaline Phosphatase 95 U/L (46-116) Total Protein 6.6 g/dL (6.4-8.2) Albumin 3.1 g/dL (3.4-5.0) Albumin/Globulin Ratio 0.9 (1.0-1.7) Ammonia 14 mcmol/L (11-34) Urine Collection Type Unknown Urine Color Ann Urine Clarity Clear Urine pH 5.5 (<5.0-8.0) Urine Specific [place] 1.025 (1.000-1.030) Urine Protein 30 mg/dL (NEG-TRACE) Urine Glucose (UA) Negative mg/dL (NEG) Urine Ketones (Stick) 15 mg/dL (NEG) Urine Blood Negative (NEG) Urine Nitrite Negative (NEG) Urine Bilirubin Small (NEG) Urine Urobilinogen Dipstick 1.0 mg/dL (0.2 mg/dL) Urine Leukocyte Esterase Small (NEG) Urine RBC 0 /HPF (0-2) Urine WBC 1-4 /HPF (0-4) Urine Bacteria 0 /HPF (0-FEW) Urine Mucus Mod /LPF Urine Opiates Screen Neg (NEG) Urine Methadone Screen Neg (NEG) Urine Barbiturates Neg (NEG) Urine Phencyclidine Screen Neg (NEG) Urine Amphetamine/Methamphetamine Neg (NEG) Urine Benzodiazepines Screen Neg (NEG) Urine Cocaine Screen Neg (NEG) Urine Cannabinoids Screen Neg (NEG) Urine Ethyl Alcohol Neg (NEG) Laboratory Tests Test 03/13/21 12:06 03/13/21 12:44 03/13/21 13:50 03/13/21 14:40 Glucose (Fingerstick) 77 mg/dL (70-99) White Blood Count 9.9 x10^3/uL (4.0-11.0) Red Blood Count 4.67 x10^6/uL (4.30-5.70) Hemoglobin 11.4 g/dL (13.0-17.5) Hematocrit 35.4 % (39.0-53.0) Mean Corpuscular Volume 76 fL (79-100) Mean Corpuscular Hemoglobin 24 pg (25-35) Mean Corpuscular Hemoglobin Concent 32 g/dL (31-37) Red Cell Distribution Width 15.5 % (11.5-14.5) Platelet Count 254 x10^3/uL (140-400) Neutrophils (%) (Auto) 82 % (31-73) Lymphocytes (%) (Auto) 12 % (24-48) Monocytes (%) (Auto) 5 % (0-9) Eosinophils (%) (Auto) 0 % (0-3) Basophils (%) (Auto) 0 % (0-3) Neutrophils # (Auto) 8.1 x10^3/uL (1.8-7.7) Lymphocytes # (Auto) 1.2 x10^3/uL (1.0-4.8) Monocytes # (Auto) 0.5 x10^3/uL (0.0-1.1) Eosinophils # (Auto) 0.0 x10^3/uL (0.0-0.7) Basophils # (Auto) 0.0 x10^3/uL (0.0-0.2) Prothrombin Time 15.1 SEC (11.7-14.0) Prothromb Time International Ratio 1.2 (0.8-1.1) Activated Partial Thromboplast Time 28 SEC (24-38) Sodium Level 142 mmol/L (136-145) Potassium Level 4.1 mmol/L (3.5-5.1) Chloride Level 105 mmol/L (98-107) Carbon Dioxide Level 26 mmol/L (21-32) Anion Gap 11 (6-14) Blood Urea Nitrogen 21 mg/dL (8-26) Creatinine 1.1 mg/dL (0.7-1.3) Estimated GFR (Cockcroft-Gault) 79.4 BUN/Creatinine Ratio 19 (6-20) Glucose Level 69 mg/dL (70-99) Calcium Level 8.4 mg/dL (8.5-10.1) Magnesium Level 1.9 mg/dL (1.8-2.4) Total Bilirubin 1.0 mg/dL (0.2-1.0) Aspartate Amino Transf (AST/SGOT) 79 U/L (15-37) Alanine Aminotransferase (ALT/SGPT) 46 U/L (16-63) Alkaline Phosphatase 95 U/L (46-116) Total Protein 6.6 g/dL (6.4-8.2) Albumin 3.1 g/dL (3.4-5.0) Albumin/Globulin Ratio 0.9 (1.0-1.7) Ammonia 14 mcmol/L (11-34) Urine Collection Type Unknown Urine Color Ann Urine Clarity Clear Urine pH 5.5 (<5.0-8.0) Urine Specific [place] 1.025 (1.000-1.030) Urine Protein 30 mg/dL (NEG-TRACE) Urine Glucose (UA) Negative mg/dL (NEG) Urine Ketones (Stick) 15 mg/dL (NEG) Urine Blood Negative (NEG) Urine Nitrite Negative (NEG) Urine Bilirubin Small (NEG) Urine Urobilinogen Dipstick 1.0 mg/dL (0.2 mg/dL) Urine Leukocyte Esterase Small (NEG) Urine RBC 0 /HPF (0-2) Urine WBC 1-4 /HPF (0-4) Urine Bacteria 0 /HPF (0-FEW) Urine Mucus Mod /LPF Urine Opiates Screen Neg (NEG) Urine Methadone Screen Neg (NEG) Urine Barbiturates Neg (NEG) Urine Phencyclidine Screen Neg (NEG) Urine Amphetamine/Methamphetamine Neg (NEG) Urine Benzodiazepines Screen Neg (NEG) Urine Cocaine Screen Neg (NEG) Urine Cannabinoids Screen Neg (NEG) Urine Ethyl Alcohol Neg (NEG) Assessment/Plan Assessment/Plan AMS 2/2 substance abuse/withdrawl vs UTI? vs malnourishment; hx substance abuse Per triage patient reports alcohol history, denies this to me; either way will place on CIWA Do not see any evidence of UTI on labs; positive leukocyte esterase but no bacteria no symptoms nitrate negative suspect contaminated sample, will hold off any further antibiotics Suspect AMS related to substance abuse/withdrawl? Home med resumed as indicated DVT prophylaxis PAT consult Resume home HTN meds PT/OT Placement? Social work? Justifications for Admission Other Justification BEKAH CHAVEZ MD Mar 13, 2021 16:41
[2021-03-13] MEDS ORDERED: ELECTROLYTE (NON-ICU) PROTOCOL. MC PRN (16:45)
[2021-03-13] MEDS ORDERED: ONDANSETRON PF 4 MG/2 ML VIAL. IVP PRN (16:45)
[2021-03-13] MEDS ORDERED: ACETAMINOPHEN 325 MG TABLET. PO PRN (16:45)
[2021-03-13] MEDS ORDERED: CALCIUM CARBONATE 500 MG TAB.CHEW PO PRN (16:45)
[2021-03-13] MEDS: MULTIVIT INFUSN,ADULT 4,VIT K 10 ML, THIAMINE INJ 100 MG, FOLIC ACID INJ 1 MG in IV NOR... IV SCH (17:27)
[2021-03-13 19:00] VITALS: BP 123/60
--- NOTE | 2021-03-13 19:42 | NUR ---
patient denies Addendum: 03/13/21 at 1950 by DAVID STRAUSS RN RN Amended: Links added.
--- NOTE | 2021-03-13 19:43 | NUR ---
unknown Addendum: 03/13/21 at 1950 by DAVID STRAUSS RN RN Amended: Links added.
[2021-03-13] MEDS: HEPARIN for SUB-Q USE 5,000 UNIT/ML VIAL. SQ SCH (22:00)
[2021-03-13] MEDS: SENNOSIDES/DOCUSATE 8.6/50MG TABLET. PO SCH (22:00)
--- NOTE | 2021-03-13 22:15 | NUR ---
RN in patient room to administer medications and perform assessment. Patient states "i don't want anything you got for me" RN explained to patient that he has medications ordered by MD. Patient still declines medication.
--- NOTE | 2021-03-13 23:02 | NUR ---
Patient refused vital signs.
[2021-03-14] MEDS: HEPARIN for SUB-Q USE 5,000 UNIT/ML VIAL. SQ SCH ×3 (06:00→21:27)
[2021-03-14 07:00] VITALS: BP 111/59
--- NOTE | 2021-03-14 08:02 | RAD ---
EXAMINATION: Chest radiograph. VIEWS: Single AP view of the chest COMPARISON: 06/04/2017 INDICATION:71 years, Male, shortness of breath. FINDINGS: Normal cardiomediastinal silhouette. Increased reticular interstitial markings with diffuse subtle pa tchy opacities with a peripheral predominance. No pleural effusion or pneumothorax. No acute osseous process. IMPRESSION: Findings suggestive of multifocal atypical pneumonia or pulmonary edema Electronically signed by: Feliciano Mack DO (03/14/2021 7:59 AM) [id number]
[2021-03-14] MEDS: LISINOPRIL 20 MG TABLET PO SCH (09:00)
[2021-03-14] MEDS: SENNOSIDES/DOCUSATE 8.6/50MG TABLET. PO SCH ×2 (09:00→21:00)
[2021-03-14] MEDS: MULTIVIT INFUSN,ADULT 4,VIT K 10 ML, THIAMINE INJ 100 MG, FOLIC ACID INJ 1 MG in IV NOR... IV SCH (09:00)
--- NOTE | 2021-03-14 10:30 | NUR ---
SW following. Discussed with RN, pt homeless, room air, regular diet. PAT consult. Rapid COVID-19 negative. RN advised no other SW needs at this time. Awaiting PAT. SW will continue to follow.
[2021-03-14 11:00] VITALS: BP 120/53
--- NOTE | 2021-03-14 11:57 | PDOC ---
[employer] PROGRESS NOTE Date of Service DOS: DATE: 03/14/21 TIME: 11:54 Chief Complaint Chief Complaint Falls Laceration UTI History of the following; depression, Schizophrenia, Other Additional Past Medical Histor: "groin injury," paranoid schizophrenia, blind Past Surgical History: No Surgical History Additional Past Surgical Histo: L eye, CATARACTS Smoking Status: Current Some Day Smoker History of Present Illness History of Present Illness 03/14/2020 Patient seen exam He is pleasantly confused Has some facial laceration Has a banana bag hanging Chart reviewed Discussed with RN Vitals/I&O Vitals/I&O: Vital Signs Date Time Temp Pulse Resp B/P (MAP) Pulse Ox O2 Delivery O2 Flow Rate FiO2 03/14/21 09:00 83 111/59 03/14/21 07:00 97.7 16 94 Room Air 97.7 I & O 03/13/21 03/13/21 03/14/21 15:00 23:00 07:00 Intake Total 0 ml Balance 0 ml Physical Exam General: No acute distress, Other (Pleasantly confused) Heart: Regular rate Lungs: Clear Abdomen: Normal bowel sounds Extremities: No clubbing Skin: No rashes, Other (Has facial lacerations please see the picture) Labs Labs: Laboratory Tests Test 03/13/21 12:06 03/13/21 12:44 03/13/21 13:50 03/13/21 14:40 Glucose (Fingerstick) 77 mg/dL (70-99) White Blood Count 9.9 x10^3/uL (4.0-11.0) Red Blood Count 4.67 x10^6/uL (4.30-5.70) Hemoglobin 11.4 g/dL (13.0-17.5) Hematocrit 35.4 % (39.0-53.0) Mean Corpuscular Volume 76 fL (79-100) Mean Corpuscular Hemoglobin 24 pg (25-35) Mean Corpuscular Hemoglobin Concent 32 g/dL (31-37) Red Cell Distribution Width 15.5 % (11.5-14.5) Platelet Count 254 x10^3/uL (140-400) Neutrophils (%) (Auto) 82 % (31-73) Lymphocytes (%) (Auto) 12 % (24-48) Monocytes (%) (Auto) 5 % (0-9) Eosinophils (%) (Auto) 0 % (0-3) Basophils (%) (Auto) 0 % (0-3) Neutrophils # (Auto) 8.1 x10^3/uL (1.8-7.7) Lymphocytes # (Auto) 1.2 x10^3/uL (1.0-4.8) Monocytes # (Auto) 0.5 x10^3/uL (0.0-1.1) Eosinophils # (Auto) 0.0 x10^3/uL (0.0-0.7) Basophils # (Auto) 0.0 x10^3/uL (0.0-0.2) Prothrombin Time 15.1 SEC (11.7-14.0) Prothromb Time International Ratio 1.2 (0.8-1.1) Activated Partial Thromboplast Time 28 SEC (24-38) Sodium Level 142 mmol/L (136-145) Potassium Level 4.1 mmol/L (3.5-5.1) Chloride Level 105 mmol/L (98-107) Carbon Dioxide Level 26 mmol/L (21-32) Anion Gap 11 (6-14) Blood Urea Nitrogen 21 mg/dL (8-26) Creatinine 1.1 mg/dL (0.7-1.3) Estimated GFR (Cockcroft-Gault) 79.4 BUN/Creatinine Ratio 19 (6-20) Glucose Level 69 mg/dL (70-99) Calcium Level 8.4 mg/dL (8.5-10.1) Magnesium Level 1.9 mg/dL (1.8-2.4) Total Bilirubin 1.0 mg/dL (0.2-1.0) Aspartate Amino Transf (AST/SGOT) 79 U/L (15-37) Alanine Aminotransferase (ALT/SGPT) 46 U/L (16-63) Alkaline Phosphatase 95 U/L (46-116) Total Protein 6.6 g/dL (6.4-8.2) Albumin 3.1 g/dL (3.4-5.0) Albumin/Globulin Ratio 0.9 (1.0-1.7) Ammonia 14 mcmol/L (11-34) Urine Collection Type Unknown Urine Color Ann Urine Clarity Clear Urine pH 5.5 (<5.0-8.0) Urine Specific [place] 1.025 (1.000-1.030) Urine Protein 30 mg/dL (NEG-TRACE) Urine Glucose (UA) Negative mg/dL (NEG) Urine Ketones (Stick) 15 mg/dL (NEG) Urine Blood Negative (NEG) Urine Nitrite Negative (NEG) Urine Bilirubin Small (NEG) Urine Urobilinogen Dipstick 1.0 mg/dL (0.2 mg/dL) Urine Leukocyte Esterase Small (NEG) Urine RBC 0 /HPF (0-2) Urine WBC 1-4 /HPF (0-4) Urine Bacteria 0 /HPF (0-FEW) Urine Mucus Mod /LPF Urine Opiates Screen Neg (NEG) Urine Methadone Screen Neg (NEG) Urine Barbiturates Neg (NEG) Urine Phencyclidine Screen Neg (NEG) Urine Amphetamine/Methamphetamine Neg (NEG) Urine Benzodiazepines Screen Neg (NEG) Urine Cocaine Screen Neg (NEG) Urine Cannabinoids Screen Neg (NEG) Urine Ethyl Alcohol Neg (NEG) Test 03/13/21 16:24 SARS-CoV-2 RNA (NANCY) Negative (Negative) SARS-CoV-2 Antigen (Rapid) Negative (NEGATIVE) Assessment and Plan Assessmemt and Plan Problems Medical Problems: (1) Urinary tract infection in male Status: Acute Falls Laceration UTI History of the following; depression, Schizophrenia, Other Additional Past Medical Histor: "groin injury," paranoid schizophrenia, blind Past Surgical History: No Surgical History Additional Past Surgical Histo: L eye, CATARACTS Smoking Status: Current Some Day Smoker Plan Wound care Antibiotics Encourage p.o. intake We considered alcohol withdrawal protocol but the patient states he really does not drink that much? (Will monitor closely and I discussed this with the RN Arcenio) Home meds DVT prophylaxis Full code PT OT Hope to discharge in a day or 2 Comment Review of Relevant I have reviewed the following items monique (where applicable) has been applied. Medications: Current Medications Medications (Trade) Dose Ordered Sig/Tracey Route PRN Reason Start Time Stop Time Status Last Admin Dose Admin Ceftriaxone Sodium (Rocephin) 1 gm 1X ONCE IVP 03/13/21 16:00 03/13/21 16:01 DC 03/13/21 16:20 Sodium Chloride 1,000 ml @ 1,000 mls/hr 1X ONCE IV 03/13/21 16:00 03/13/21 16:59 DC 03/13/21 16:20 Multivitamins 10 ml/Thiamine HCl 100 mg/Folic Acid 1 mg/Sodium Chloride 1,011.2 ml @ 100 mls/ hr DAILY IV 03/13/21 17:00 03/17/21 19:07 03/13/21 17:27 Justifications for Admission Other Justification CARI GARCIA III DO Mar 14, 2021 11:57
[2021-03-14 15:00] VITALS: BP 125/71
[2021-03-14] MEDS ORDERED: cefTRIAXone IV Push 1 GM VIAL. IVP SCH (15:00)
[2021-03-14 19:00] VITALS: BP 119/73
[2021-03-14 23:00] VITALS: BP 119/66
[2021-03-15 03:00] VITALS: BP 101/62
[2021-03-15] MEDS: HEPARIN for SUB-Q USE 5,000 UNIT/ML VIAL. SQ SCH ×2 (05:38→14:00)
[2021-03-15 07:00] VITALS: BP 112/65
[2021-03-15] MEDS: LISINOPRIL 20 MG TABLET PO SCH (09:00)
[2021-03-15] MEDS: SENNOSIDES/DOCUSATE 8.6/50MG TABLET. PO SCH (09:00)
--- NOTE | 2021-03-15 11:05 | NUR ---
SW following. Discussed with RNIglesia (FELIPA) met with pt yesterday, pt denying he has schizophrenia, denies any problems. Today pt is dressed and wanting to leave. Dr. Richmond notified. MARTY will continue to follow.
--- NOTE | 2021-03-15 11:14 | NUR ---
Pt. states he is ready to leave, does not want to wait for Dr. Richmond to see him. Pt informed he would need an address to go to to be able to leave the hospital. Pt. states he does not have an address to go to . he attempted to call his sister with no answer. Pt. stated he would think of an address to go to. Nursing supervisor nurse notified of pt's intentions.
[2021-03-15] MEDS ORDERED: LACTOBACILLUS RHAMNOSUS GG 1 CAPSULE. PO SCH (12:00)
--- NOTE | 2021-03-15 12:10 | PDOC ---
[employer] PROGRESS NOTE Date of Service DOS: DATE: 03/15/21 TIME: 12:06 Chief Complaint Chief Complaint Falls Laceration UTI History of the following; depression, Schizophrenia, Other Additional Past Medical Histor: "groin injury," paranoid schizophrenia, blind Past Surgical History: No Surgical History Additional Past Surgical Histo: L eye, CATARACTS Smoking Status: Current Some Day Smoker History of Present Illness History of Present Illness 03/15/2021 Patient seen and examined, sitting in chair, dressed and ready to be discharged He is pleasantly confused Has some facial lacerations Discussed with RN Discussed with watch case polisher Chart Reviewed 03/14/2021 Patient seen and examined He is pleasantly confused Has some facial laceration Has a banana bag hanging Chart reviewed Discussed with RN Vitals/I&O Vitals/I&O: Vital Signs Date Time Temp Pulse Resp B/P (MAP) Pulse Ox O2 Delivery O2 Flow Rate FiO2 03/15/21 08:00 Room Air 03/15/21 07:00 97.4 76 16 112/65 (81) 95 97.4 I & O 0 03/14/21 03/14/21 03/15/21 15:00 23:00 07:00 Intake Total 200 ml Balance 200 ml Physical Exam General: No acute distress, Other (Pleasantly confused) Heart: Regular rate Lungs: Clear Abdomen: Normal bowel sounds Extremities: No clubbing Skin: No rashes, Other (Has facial lacerations please see the picture) Assessment and Plan Assessmemt and Plan Problems Medical Problems: (1) Urinary tract infection in male Status: Acute Falls Laceration UTI History of the following; depression, Schizophrenia, Other Additional Past Medical Histor: "groin injury," paranoid schizophrenia, blind Past Surgical History: No Surgical History Additional Past Surgical Histo: L eye, CATARACTS PLAN: Probable discharge this afternoon to [facility]. Comment Review of Relevant I have reviewed the following items monique (where applicable) has been applied. Justifications for Admission Other Justification CARI GARCIA III DO Mar 15, 2021 12:10
--- NOTE | 2021-03-15 14:21 | NUR ---
Pt. to be discharged to prior residence via cab. Pt .refusing to sign discharge instructions. Addendum: 03/15/21 at 1630 by SUNNI ELAINE RN Pt. refused to have d/c photos taken of face.
--- NOTE | 2021-03-15 15:47 | NUR ---
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
--- NOTE | 2021-03-15 16:15 | NUR ---
Pt. aggitated due to [employer] not yet here. Pacing the hallway, found going down back stairs x 2. Yanick lao called due to pt's aggitation. Security here to walk pt down. Pt. refused to wait for [employer].
[2021-03-18] MEDS ORDERED: FOLIC ACID 1 MG TABLET. PO SCH (09:00)
[2021-03-18] MEDS ORDERED: THIAMINE 100 MG TABLET. PO SCH (09:00)
[2021-03-18] MEDS ORDERED: MULTIVITAMIN with MINERAL TABLET. PO SCH (09:00)
== END 2021-03-15 16:20 | disposition home or self-care (01) ==
LOC: ER 11:53 → 4 NORTH 15:49 → INTOOBSV 15:49
PROVIDERS: ADMIT Student in an Organized Health Care Education/Training Program; ATTEND Student in an Organized Health Care Education/Training Program
DX: S01.81XA Laceration without foreign body of other part of head, initial encounter (principal); Z20.822 Contact with and (suspected) exposure to COVID-19; I10 Essential (primary) hypertension; R41.82 Altered mental status, unspecified; M48.00 Spinal stenosis, site unspecified; N39.0 Urinary tract infection, site not specified; H54.7 Unspecified visual loss; F32.A Depression, unspecified; F20.0 Paranoid schizophrenia; F17.210 Nicotine dependence, cigarettes, uncomplicated; Z59.00 Homelessness unspecified; Z98.42 Cataract extraction status, left eye; Z79.899 Other long term (current) drug therapy; Z98.890 Other specified postprocedural states; W18.30XA Fall on same level, unspecified, initial encounter; Y92.89 Other specified places as the place of occurrence of the external cause; Y93.89 Activity, other specified; Y99.8 Other external cause status
CPT/HCPCS: 36415; 70450; 70486; 71045; 72125; 80053; 80307; 81001; 82140; 82962; 83735; 85025; 85610; 85730; 87086; 87426; 93005; 96361; 96365; 96366; 96375; 97110; 97161; 97165; 99285; G0378; J0696; J3411; J3490; J7030; U0003; U0005; G0379